=== PATIENT | female | born 1955 | race Caucasian/White ===

== ENCOUNTER → 2020-08-28 10:23 | Outpatient (BNVA) | payer MEDICAID, SELFPAY | PROVIDERS: PCP Internal Medicine; Visit Provider Hospitalist | DX: J45.41 Moderate persistent asthma with (acute) exacerbation (principal); J40 Bronchitis, not specified as acute or chronic; J30.9 Allergic rhinitis, unspecified; Z79.51 Long term (current) use of inhaled steroids; Z79.899 Other long term (current) drug therapy | CPT/HCPCS: 99212 ==

== ENCOUNTER 2020-08-28 11:08 | Outpatient (REF) | payer MEDICAID, SELFPAY | END 2020-08-28 11:09 | disposition home or self-care (01) | LOC: HO.LAB 11:08 | PROVIDERS: Visit Provider Internal Medicine | DX: Z20.822 Contact with and (suspected) exposure to COVID-19 (principal) | CPT/HCPCS: 36415; C9803; U0003; U0005 ==

== ENCOUNTER → 2020-11-26 15:07 | Outpatient (BNVA) | payer MEDICAID, SELFPAY | PROVIDERS: PCP Internal Medicine; Visit Provider Hospitalist | DX: J45.41 Moderate persistent asthma with (acute) exacerbation (principal); J40 Bronchitis, not specified as acute or chronic; J30.9 Allergic rhinitis, unspecified; Z79.899 Other long term (current) drug therapy | CPT/HCPCS: 99212 ==

== ENCOUNTER → 2021-11-22 15:21 | Outpatient (BNVA) | payer MEDICAID, SELFPAY | PROVIDERS: PCP Internal Medicine; Visit Provider Hospitalist | DX: J45.41 Moderate persistent asthma with (acute) exacerbation (principal); J30.9 Allergic rhinitis, unspecified; K21.9 Gastro-esophageal reflux disease without esophagitis | CPT/HCPCS: 99212 ==

== ENCOUNTER → 2022-04-15 09:05 | Outpatient (BNVA) | payer MEDICARE, MEDICAID, SELFPAY | PROVIDERS: PCP Internal Medicine; Visit Provider Hospitalist | DX: J40 Bronchitis, not specified as acute or chronic (principal); J30.9 Allergic rhinitis, unspecified; J45.41 Moderate persistent asthma with (acute) exacerbation; K21.9 Gastro-esophageal reflux disease without esophagitis | CPT/HCPCS: 99212 ==

== ENCOUNTER 2023-09-10 13:17 | Outpatient (AMB) | payer MEDICARE, MEDICAID, SELFPAY ==
[2023-09-10 13:27] VITALS: PULSE 56; O2SAT 98; BMI 29.5
--- NOTE | 2023-09-10 13:27 | MHC.OFFVIS ---
Intake Vital Signs 09/10/23 13:27 Height 4 ft 11 in Weight 146 lb BMI 29.5 Pulse 56 Pulse Source Pulse Oximeter Pulse Oximetry (%) 98 Oxygen Delivery Method Room Air Intake Visit Reasons: Asthma Technical Solutions Engineer Required: No Allergies No Known Allergies Allergy (Verified 09/10/23 13:29) HPI HPI Comments History of Present Illness Details The patient is a 68-year-old woman with a history of asthma in addition to allergic rhinitis. She is currently being treated by the allergy office. She was otherwise doing well until August when she started developing worsening shortness of breath and cough. She restarted the Symbicort with good effect. She is using daily. Has not had to use her rescue inhaler. Her nutritional assistant appeared to be better controlled this time. She is concerned because she did get sick back in November of 2018 requiring antibiotics and prednisone. At this point she is doing well. 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 We will readdress that issues during the early fall attending have the COVID-19 infections are going. Her sleep is better. She is not snoring as much that now that she has been using an addaptive device that she brought. We did talk about her pulmonary nodules and her last CT chest demonstrating stable nodules as per CT chest 2017. 08/28/2020 the patient is here for pulmonary follow-up visit. Since we last spoke the patient has been complaining of worsening cough along with shortness of breath. She feels some chest tightness. Mild in severity she had been doing okay specially with doing her allergy shots. She actually stop the Symbicort because use doing well. She did not require her short-acting beta agonist for some time. However, due to the pandemic she had this done the allergy shots in her respiratory status has been worsening. Been having a productive cough. She has been using her rescue therapy a nebulizer more frequently. Typically on a daily basis. She has required courses of prednisone. At this point the patient is planning a trip to [place] to see her new grandchild. She will be getting the Tdap vaccine this week. On examination she does have some expiratory wheezing. Explained to the patient that based on the fact that she is going to get a vaccine will going to give any prednisone. But, she needs to restart her Symbicort and also start using her nebulizer twice a day. In the meantime will treated for bronchitis with azithromycin. She will finish a 5 day course. She will follow-up with Allergy immunology regarding other alternatives to the allergy shots if she does not find effective. 11/26/2020 the patient is here for sick visit. She started developing worsening cough the last week. Positive sick contacts with a has been sick at home. She then started developing increasing cough chest congestion. She did call our office and we did provide her with a Z-Ted and she did start Mucinex DM. However, after several days she was no better. Therefore she will call to make an appointment. On today's visit she started to feel little better. Although she is expectorating more in the phlegm tends to be thick in discolored greenish color. She also feels tired. At some point in the beginning she did develop some chest discomfort which a component was pleuritic period of the right now on the examination her lungs sound relatively clear the bases without any evidence of any pleural rubs or consolidations. The patient has been using the nebulizer therapy twice a day. However, she is complaining about the tremulousness that she is getting from it. In addition to that she has developed some chest discomfort specially well coughing. [id number] severity. At this point she does not feel it. 11/22/2021 the patient is here for pulmonary follow-up visit. She continues to do fairly well. She has not required prednisone or antibiotics in the last year. She has continue with her allergy shots although there was a decrease in the amount recently. The patient still not sure when to use her inhalers. Has Symbicort available. I did recommend she can use use it as needed. we did review data demonstrating that Symbicort has been shown to be effective while using it as needed instead of short-acting beta agonists by itself. She can be monitored closely by symptoms and also peak flows to measure the airway resistance. I did provide her 1 in the office and we did instructed how to use it. Her peak flow was around 400 mL/sec. The patient also has a nebulizer available. She has not required. She was also found to have osteoporosis and will be starting Prolia soon. The patient does continue to have reflux symptoms. She stop the PPI due to her issue with osteoporosis. Patient is able to use Pepcid to minimize her reflux symptoms and to be using conjunction with the reflux diet. It may also help with her allergies. 04/15/2022 the patient is here for a pulmonary follow-up visit. The patient just came back from [place]. Once she got to [place] she became sick with worsening respiratory symptoms. She went to an urgent care where she was evaluated and found to have significant wheezing. She was given Solu-Medrol intramuscularly 2 days in a row. In addition to that she was started on levofloxacin also given cough medication. Her symptoms persisted while in [place]. She is feeling better although she is not back to baseline. She still coughing. At times is a croupy cough and at times is productive of yellowish green phlegm. She did complete the levofloxacin. She also completed the prednisone. She has been using the nebulizer but it makes her little shaky. She does have a flutter valve which she has not used it because she does not use it. Due to the fact that she has been under the weather she did not have her pulmonary function studies. We did review the use of the flutter valve and she may continue using it specially after the nebulized therapy. She knows that she can do half a treat him to minimize the adverse effects from the medication. In view of the persistent chest congestion I do believe that this is likely a postviral bacterial infection. Will go ahead and start her again on doxycycline in order to completely clear all the potential pathogens including community-acquired Staph. She continues using respiratory therapy. Also to note that when she came back she did have a chest x-ray done and she was told that it was normal. I do not have those results however. 09/10/2023 the patient is here for pulmonary follow-up visit. The patient is feeling well. Denies any recent exacerbations. She does have the Symbicort inhaler although she does not using all the time. She does complaint of chest congestion at times. The mucus usually clears up after she is able to expectorate it. She has been sick since last time she was here where she required antibiotics for that infection she developed a broad while she was in [place] visiting her daughter. She still has some prolonged expiratory phase on examination. I do believe that she needs to continue the Symbicort. Although she is concerned about her osteoporosis. Will go ahead and just have her take the smallest dose possible which 1 puff daily. Although she still can use it as needed as well. The patient should come back in 6 months with PFTs to assess her respiratory capacity. She does have another trip plan abroad to [place] in the coming weeks. I will make sure that a provider medications for her to take with her especially since she got sick during the last trip. [facility] Medical History (Updated 09/10/23 @ 13:32 by Joel Cain MD) Chronic allergic rhinitis Bronchitis Asthma Social History (Updated 11/26/20 @ 15:39 by SHAY Gerber) Patient Tobacco Use Status: Never used Tobacco Review of Systems Const Denies fatigue and Denies night sweats ENT Denies change in voice, Denies lip swelling, Denies mouth pain, Reports nasal congestion, Reports nasal discharge and Denies tongue swelling Card Denies chest pain Resp Denies change in phlegm color, Denies chest congestion, Reports cough, Denies hemoptysis, Denies pain on inspiration and Reports wheezing GI Denies abdominal pain and Reports heartburn Musc Denies no additional complaints Skin/Breast Denies rash Neuro Denies Neuro-related abnormal movements Psych Denies no additional complaints Endo Denies fatigue Derek/Lymph Denies easy bleeding and Denies lymphadenopathy Aller/Immun Denies lip swelling, Denies tongue swelling and Reports wheezing Physical Exam Vital Signs: Last Vital Signs Pulse 56 09/10/23 13:27 Pulse Ox 98 09/10/23 13:27 Oxygen Delivery Method Room Air 09/10/23 13:27 BMI result Body Mass Index 29.5 Const General: alert Neck Neck: Yes normal visual inspection, Yes full ROM and Yes no lymphadenopathy Chest Chest palpation & inspection: normal inspection of the chest Resp Effort & Inspection: prolonged expiratory phase Auscultation: no rhonchi, no wheezes (minimal) and diminished lung sounds Cardio Rate: regular rate Rhythm: regular rhythm Heart sounds: S1 normal heart sound present and S2 normal heart sound present GI Palpation (GI): Soft to palpation and nontender Auscultation: normal bowel sounds Skin General skin exam: no rashes or lesions noted Extrem General: Yes no clubbing, cyanosis or edema Assessment & Plan Assessment & Plan (1) Asthma: Code(s): J45.909 - Unspecified asthma, uncomplicated Qualifiers: Asthma complication type: with acute exacerbation Asthma persistence: persistent Asthma severity: moderate Qualified Code(s): J45.41 - Moderate persistent asthma with (acute) exacerbation (2) Chronic allergic rhinitis: Code(s): J30.9 - Allergic rhinitis, unspecified (3) GERD (gastroesophageal reflux disease): Code(s): K21.9 - Gastro-esophageal reflux disease without esophagitis Qualifiers: Esophagitis presence: without esophagitis Qualified Code(s): K21.9 - Gastro-esophageal reflux disease without esophagitis Plan Continue Symbicort in AM then as needed Nebulizer daily CPT with acapella valve Continue Mucinex benzonates as needed reflux diet Pepcid PFTs in 6 months F/U 6 months Orders: Orders PFT pulmonary function test 6 Months J45.41 - Moderate persistent asthma with (acute) exacerbation Medications: New prednisone PO daily; Take 6 tabs daily x 3 days, then 5 tabs x 3 days, then 4 tabs x 3 days, then 3 tabs x 3 days, then 2 tabs daily x 3 days, then 1 tab x 3 days to complete. 18 days 63 tabs 0RF doxycycline monohydrate 100 mg PO BID 14 days 28 tabs 0RF Coding Level of Care Code Est Pt Level 4 (66673) Diagnoses Moderate persistent asthma with acute exacerbation J45.41 Asthma complication type: with acute exacerbation Asthma persistence: persistent Asthma severity: moderate Chronic allergic rhinitis J30.9 Gastroesophageal reflux disease without esophagitis K21.9 Esophagitis presence: without esophagitis Time Spent (min) 18
== END 2023-09-10 14:00 | disposition home or self-care (01) ==
PROVIDERS: PCP Internal Medicine; Visit Provider Hospitalist
DX: J45.41 Moderate persistent asthma with (acute) exacerbation (principal); J30.9 Allergic rhinitis, unspecified; K21.9 Gastro-esophageal reflux disease without esophagitis
CPT/HCPCS: 99214

== ENCOUNTER → 2023-09-10 13:17 | Outpatient (BNVA) | payer MEDICARE, MEDICAID, SELFPAY | PROVIDERS: PCP Internal Medicine; Visit Provider Hospitalist | DX: J45.41 Moderate persistent asthma with (acute) exacerbation (principal); J30.9 Allergic rhinitis, unspecified; K21.9 Gastro-esophageal reflux disease without esophagitis | CPT/HCPCS: 99212 ==

== ENCOUNTER 2023-11-09 13:37 | Outpatient (AMB) | payer MEDICARE, MEDICAID, SELFPAY ==
[2023-11-09 13:41] VITALS: BP 94/60; PULSE 65; O2SAT 97; BMI 28.9
--- NOTE | 2023-11-09 13:41 | MHC.OFFVIS ---
Vital Signs 11/09/23 13:41 Height 4 ft 11 in Weight 143 lb 4.807 oz BMI 28.9 BP 94/60 Blood Pressure Location Lt brachial Position Sitting Pulse 65 Pulse Source Pulse Oximeter Pulse Oximetry (%) 97 Oxygen Delivery Method Room Air Intake Visit Reasons: productive cough Intake Note: pt is here for cough that is productive with yellow/green phelgm, shot of prednisone 60mg 10/26 with not much relief. Top Coater Required: No Allergies No Known Allergies Allergy (Verified 11/09/23 14:11) Medication List - Last Reconciled 11/09/23 by Ruth Toth MD albuterol sulfate 90 mcg/actuation 2 inhalations inhalation Q6H PRN 30 days budesonide-formoterol 160-4.5 mcg/actuation (Symbicort) 2 puffs inhalation BID cholecalciferol (vitamin D3) 1,250 mcg PO QWEEK citalopram (Celexa) 5 mg PO DAILY denosumab (Prolia) 60 mg subcut [id number] ipratropium-albuterol 0.5 mg-3 mg(2.5 mg base)/3 mL 3 mL inhalation Q6H PRN 30 days levocetirizine (Xyzal) 5 mg PO DAILY PRN nebulizers As directed prednisone 20 mg PO BID 5 days rizatriptan mg PO Do you need a note to return to daycare/school/sports/work: No HPI HPI productive cough: Details: 68 YEARS OLD FEMALE, HAS HISTORY OF ALLERGIC RHINITIS AND BRONCHIAL ASTHMA, FOR THE PAST MANY YEARS. SHE HAS BEEN ON IMMUNOTHERAPY AT THE ALLERGY OFFICE FOR THE LAST 5 YEARS. SHE STATES THAT SHE HAS NOTICED SOME BUT NOT COMPLETE IMPROVEMENT WITH THE SHOTS. SHE IS BEING FOLLOWED BY DR. GARCIA FOR PULMONARY MANAGEMENT. SINCE ABOUT 10-12 DAYS SHE IS HAVING INCREASED COUGH WITH YELLOWISH EXPECTORATION. SHE RECEIVED AN INJECTION OF MEDROXY PREDNISOLONE 60 MG IM ON 10/26 , STATES THAT SHE HAS NOT FOUND ANY SIGNIFICANT IMPROVEMENT. SHE DENIES ANY FEVER OR CHILLS OR CHEST PAIN. BECAUSE HER COUGH AND EXPECTORATION OF YELLOWISH PHLEGM IS PERSISTENT, AND SHE IS TRAVELING BY AIR TO [place] TOMORROW, SHE WAS CONCERNED AND HAS COME FOR AN URGENT VISIT TO OUR OFFICE. SHE WE HAD A GOOD CONVERSATION AND SHE DOES NOT SEEM TO BE IN ANY DISTRESS. HOWEVER SHE DID HAVE INTERMITTENT COUGH DURING HER STAY IN THE OFFICE. [facility] Medical History Asthma exacerbation attacks Chronic allergic rhinitis Bronchitis Asthma Social History Patient Tobacco Use Status: Never used Tobacco Review of Systems Const Denies fatigue and Denies night sweats ENT Denies change in voice, Denies lip swelling, Denies mouth pain, Reports nasal congestion (MILD INTERMITTENT) and Denies tongue swelling Card Denies chest pain Resp Denies change in phlegm color, Denies chest congestion, Reports cough, Denies hemoptysis, Denies pain on inspiration and Reports wheezing GI Denies abdominal pain and Reports heartburn Musc Denies no additional complaints Skin/Breast Denies rash Neuro Denies Neuro-related abnormal movements Psych Denies no additional complaints Endo Denies fatigue Derek/Lymph Denies easy bleeding and Denies lymphadenopathy Aller/Immun Denies lip swelling, Denies tongue swelling and Reports wheezing Physical Exam Const General: healthy appearing, comfortable and alert HEENT Other: THERE IS NO ACTIVE NASAL CONGESTION AT THIS TIME BUT SHE HAS MODERATE HYPERTROPHY OF THE NASAL TURBINATES. THROAT IS VERY CLEAR WITHOUT EVIDENCE OF ANY ACUTE INFECTION Eyes General: appearance normal, both eyes and all related structures Neck Neck: Yes normal visual inspection, Yes full ROM, Yes no lymphadenopathy and Yes JVD Chest Chest palpation & inspection: normal inspection of the chest, normal palpation of entire chest wall and no tenderness Resp Other: PERCUSSION NOTE IS RESONANT. BREATH SOUNDS. ARE DISTANT WITH PROLONGED EXPIRATORY PHASE BUT EQUAL ON BOTH SIDES. SCATTERED INSPIRATORY WHEEZES ARE HEARD ESPECIALLY OVER THE LOWER LOBES. Cardio Rate: regular rate Rhythm: regular rhythm Heart sounds: S1 normal heart sound present and S2 normal heart sound present GI Palpation (GI): Soft to palpation and nontender Auscultation: normal bowel sounds Skin General skin exam: no rashes or lesions noted Extrem General: Yes no clubbing, cyanosis or edema Assessment & Plan Assessment & Plan (1) Asthma exacerbation attacks: Comment: PATIENT IS A KNOWN CASE OF BRONCHIAL ASTHMA FOR MANY YEARS. CURRENTLY SHE HAS A LOW-GRADE ACUTE EXACERBATION PROBABLY DUE TO ACUTE BRONCHITIS. SHE IS TRAVELING TO [place] FOR A FEW WEEKS. Code(s): J45.901 - Unspecified asthma with (acute) exacerbation Category: Medical Plan: DISCUSSED WITH HER IN GREAT DETAIL. ADVISE THAT SHE SHOULD TAKE A COURSE OF PREDNISONE. SHE DOES HAVE 6 DAYS SUPPLY, WAS PRESCRIBED BY DR. GARCIA ON HER LAST VISIT. I TOLD HER TO GO AHEAD AND START THE PREDNISONE IN A TAPERING DOES PRESCRIBED. I WOULD ALSO GIVE HER ADDITIONAL SUPPLY OF 10 TABLETS OF 20 MG, TO KEEP ON HAND WHEN SHE IS TRAVELING IN [place], AND USE IF SHE GETS ANY ACUTE EXACERBATION OVER THE. SHE ALSO HAS THE SUPPLY OF DOXYCYCLINE 100 MG B.I.D. FOR 10 DAYS. AND I HAVE ADVISED HER TO KEEP IT ON HAND AND USE IF SHE STARTS HAVING ANY FEVER CHILLS OR INCREASED AMOUNT OF YELLOWISH PHLEGM. CONTINUE TO USE SYMBICORT 160-4.52 PUFFS B.I.D.. AND ALSO USE ALBUTEROL HFA 2 PUFFS Q 4-6 HOURS BUT ONLY P.R.N.. (2) Chronic allergic rhinitis: Comment: NASAL CONGESTION IS MINIMAL AT THIS TIME. 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 Code(s): J40 - Bronchitis, not specified as acute or chronic Category: Medical Plan: ADVISED TO KEEP DOXYCYCLINE ON HAND, AND IF SHE BECOMES MORE SYMPTOMATIC THEN MAY USE 100 MG B.I.D. FOR 10 DAYS. Medications: New prednisone 20 mg PO BID 5 days 10 tabs 0RF ASTHMA EXCERBATION Coding Level of Care Code Est Pt Level 3 (54441) Diagnoses Asthma exacerbation attacks J45.901 Chronic allergic rhinitis J30.9 Bronchitis J40
== END 2023-11-09 14:41 | disposition home or self-care (01) ==
PROVIDERS: PCP Internal Medicine; Visit Provider Internal Medicine
DX: J45.901 Unspecified asthma with (acute) exacerbation (principal); J30.9 Allergic rhinitis, unspecified
CPT/HCPCS: 99213

== ENCOUNTER → 2023-11-09 13:37 | Outpatient (BNVA) | payer MEDICARE, MEDICAID, SELFPAY | PROVIDERS: PCP Internal Medicine; Visit Provider Internal Medicine | DX: J45.901 Unspecified asthma with (acute) exacerbation (principal); J30.9 Allergic rhinitis, unspecified; Z79.52 Long term (current) use of systemic steroids | CPT/HCPCS: 99212 ==

== ENCOUNTER → 2023-12-15 08:44 | Outpatient (BNVA) | payer MEDICARE, MEDICAID, SELFPAY | PROVIDERS: PCP Internal Medicine; Visit Provider Nurse Practitioner Family | DX: J45.41 Moderate persistent asthma with (acute) exacerbation (principal); J30.9 Allergic rhinitis, unspecified | CPT/HCPCS: 99212 ==

== ENCOUNTER 2023-12-15 08:48 | Outpatient (AMB) | payer MEDICARE, MEDICAID, SELFPAY ==
--- NOTE | 2023-12-15 08:28 | MHC.OFFVIS ---
Vital Signs 12/15/23 08:48 Height 4 ft 11 in Weight 142 lb 2 oz BMI 28.7 BP 120/76 Blood Pressure Location Lt brachial Position Sitting Pulse 63 Pulse Source Pulse Oximeter Pulse Oximetry (%) 96 Oxygen Delivery Method Room Air Intake Visit Reasons: productive cough Allergies No Known Allergies Allergy (Verified 12/15/23 08:51) HPI HPI productive cough: Details: Yahir is a pleasant 68 year old female, never smoker, with underlying asthma and allergic rhinitis. She is under the care of Dr. Cain and presents today for an acute visit. At baseline she is moderately controlled on Symbicort 160 mcg, albuterol MDI, Duoneb and allergen immunotherapy. She reports worsening control of asthma and productive cough, seen by Dr. Toth on 11/08, treated with prednisone and given doxycycline however did not take medication prescribed. She did take the prednisone taper Dr. Cain had prescribed in the past, which was 60 mg taper for a total of 18 days. She reports symptoms improved and traveled to [place]. After traveling back home she recalls a passenger with persistent coughing on the flight and soon developed symptoms. She reports dry cough, chest congestion with difficulty expectorating and worsening dyspnea since 12/08/23 and has been progressing the last three days. She has been using her nebulizer BID, albuterol daily and mucinex with minimal relief. She denies any fevers, chills. [facility] Medical History (Updated 12/15/23 @ 20:25 by Leyda Russell NP) Mild mitral valve prolapse Asthma exacerbation attacks Chronic allergic rhinitis Bronchitis Asthma Social History Patient Tobacco Use Status: Never used Tobacco Review of Systems Const Denies chills, Denies excessive sweating, Denies fever(s), Denies headache(s) and Denies night sweats Eyes Denies dry eyes, Denies irritation and Denies itchy eyes ENT Reports Normal hearing present, Denies headache(s), Denies nasal congestion, Denies nasal discharge, Denies post nasal drip and Denies sore throat Card Denies chest pain, Denies chest pain at rest, Denies chest pain with activity, Denies claudication, Denies leg edema, Denies orthopnea and Denies paroxysmal nocturnal dyspnea Resp Denies excessive phlegm production, Denies pain on inspiration, Denies pain with cough, Denies stridor and Denies wheezing Musc Denies myalgias Neuro Reports Normal hearing present and Denies headache(s) Endo Denies excessive sweating Derek/Lymph Denies lymphadenopathy Aller/Immun Denies itchy eyes, Denies seasonal rhinorrhea and Denies wheezing Physical Exam Vital Signs: Last Vital Signs Pulse 63 12/15/23 08:48 BP 120/76 12/15/23 08:48 Pulse Ox 96 12/15/23 08:48 Oxygen Delivery Method Room Air 12/15/23 08:48 BMI result Body Mass Index 28.7 Const General: cooperative, healthy appearing, comfortable, no acute distress, well developed and alert Nutritional Appearance: obese Orientation/consciousness: patient oriented x3 Limitations: no limitations HEENT Head: Yes normal to inspection, Yes normocephalic and Yes atraumatic Ears: hearing grossly normal bilaterally and external ears normal Eyes General: appearance normal, both eyes and all related structures Eyelids: Yes eyelids normal Sclerae: sclerae normal EOM: EOMs intact bilaterally Neck Neck: Yes normal visual inspection and Yes no lymphadenopathy Lymphatic: no lymphadenopathy noted Chest Chest palpation & inspection: normal inspection of the chest Resp Effort & Inspection: normal respiratory effort, able to speak in complete sentences, no audible wheezes, no cough, no stridor, not tachypneic, no tripod positioning and no use of accessory muscles Auscultation: wheezes expiratory wheezes and throughout and diminished lung sounds Cardio Jugular venous distension: no JVD Rate: regular rate Rhythm: regular rhythm Skin Other: warm, dry General skin exam: no rashes or lesions noted Neuro General: patient oriented x3 Cranial nerves: Yes Normal hearing present Cognition (Neuro): normal cognition Gait exam (Neuro): Normal gait present Extrem General: Yes normal to inspection, Yes capillary refill normal, Yes no clubbing, cyanosis or edema and Yes no pedal edema Psych Appearance: grossly normal and well kempt Speech and movement: Normal speech and movement present and Clear speech present Affect: normal affect Attitude: cooperative Thought process: Normal thought process present Thought content: Normal thought content present Insight: Good insight present (Psych) Judgement: Good judgement present (Psych) Assessment & Plan Assessment & Plan (1) Asthma: Code(s): J45.909 - Unspecified asthma, uncomplicated Category: Medical Qualifiers: Asthma severity: moderate Asthma persistence: persistent Asthma complication type: with acute exacerbation Qualified Code(s): J45.41 - Moderate persistent asthma with (acute) exacerbation (2) Chronic allergic rhinitis: Code(s): J30.9 - Allergic rhinitis, unspecified Category: Medical Plan Yahir presents with progressively worsening dyspnea on exertion, chest congestion with difficulty expectorating and minimal responsive to current regimen. On exam, wheezing appreciated with diminished lung sounds. Advised to take doxycyline and prednisone 40 mg x 5 days, which she has at home, previously prescribed from Dr. Toth. She did note that due to worsening symptoms for almost two months and has not been able to comply with allergen immunotherapy. Advised to restart consistent regimen and take a daily antihistamine until able to be compliant. Given that this is the second round of prednisone, discussed possibility of biologics, to be further discussed with Dr. Cain, if unresponsive to maintenance dose of allergen immunotherapy. She is aware if symptoms persist after doxy and prednisone to call office and will order CXR. All questions were answered and patient is in agreement of plan. Will follow up for regularly scheduled appointment with Dr. Cain or sooner if needed. Coding Level of Care Code Est Pt Level 3 (62106) Diagnoses Moderate persistent asthma with acute exacerbation J45.41 Asthma severity: moderate Asthma persistence: persistent Asthma complication type: with acute exacerbation Chronic allergic rhinitis J30.9
--- OUTSIDE RECORDS SUMMARY | 2023-12-15 08:46 | XMS_ITS | Summary of Care ---
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
--- OUTSIDE RECORDS SUMMARY | 2023-12-15 08:46 | XMS_ITS | Summary of Care ---
Author Organization [facility] Address [address] [place] [address]- Care Team Providers Care Floor Tiling Professional Name Role Phone NAVNEET NORWOOD MD Primary Care Physician Encounter [facility]_CSN [id number] Date(s): 04/06/23 - 04/06/23 [facility] [address] [place] [address]- Discharge Disposition: Home Attending Physician: KATHERINE MCCOLLUM MD Referring Physician: PERFECTO AMBRIZ MD Problem List Condition Confirmation Course Effective Dates Status Health St atus Informant Tear of medial meniscus of knee 1 Confirmed Active 1Added by [facility] Patient Care team information Personnel Name: NAVNEET NORWOOD MD Address: Address: [address] [place] [phone] [place]
--- OUTSIDE RECORDS SUMMARY | 2023-12-15 08:46 | XMS_ITS | Summary of Care ---
Author Organization [facility] Address [address] [place] [address] Care Team Providers Care Assistant Superintendent Name Role Phone NAVNEET NORWOOD MD Primary Care Physician Encounter [facility]_CSN [id number] Date(s): 02/16/23 - 02/16/23 [facility] [address] [place] [address] [place] Encounter Diagnosis Pain in right knee(Final) - Unilateral primary osteoarthritis, right knee(Final) - Nondisplaced fracture of right tibial spine, sequela(Final) - Discharge Disposition: Discharge Attending Physician: ANT DUTTA MD Referring Physician: PB GIMENEZ, PERFECTO Esquivel Medications Euflexxa 10 mg/mL intra-articular solution See Instructions, Special Instructions: 10 mg/mL intra-articular injection, 1 time per week for 3 weeks, Dispense Quantity: 1 kit, Entered: 02/16/23 12:16:00 EDT, Stop: 05/19/23 12:17:00 EST Start Date: 02/16/23 Stop Date: 05/19/23 Status: Ordered Problem List Condition Confirmation Course Effective Dates Status Health St atus Informant Tear of medial meniscus of knee 1 Confirmed Active 1Added by [facility] Patient Care team information Personnel Name: NAVNEET NORWOOD MD Address: Address: [address] [place] [phone] [place]
--- OUTSIDE RECORDS SUMMARY | 2023-12-15 08:46 | XMS_ITS | Summary of Care ---
Author Organization [facility] Address [address] [place] [address]- Care Team Providers Care Master Cosmetologist Name Role Phone NAVNEET NORWOOD MD Primary Care Physician Encounter [facility]_CSN [id number] Date(s): 03/30/23 - 03/30/23 [facility] [address] [place] [address]- Discharge Disposition: Home Attending Physician: KATHERINE MCCOLLUM MD Referring Physician: PERFECTO AMBRIZ MD Problem List Condition Confirmation Course Effective Dates Status Health St atus Informant Tear of medial meniscus of knee 1 Confirmed Active 1Added by [facility] Patient Care team information Personnel Name: NAVNEET NORWOOD MD Address: Address: [address] [place] [phone] [place]
--- OUTSIDE RECORDS SUMMARY | 2023-12-15 08:46 | XMS_ITS | Summary of Care ---
Author Organization [facility] Address [address] [place] [address] Care Team Providers Care Hat Binder Name Role Phone NAVNEET NORWOOD MD Primary Care Physician Encounter [facility]_CSN [id number] Date(s): 02/05/23 - 02/05/23 [facility] [address] [place] [address] Discharge Disposition: Discharge Attending Physician: ANT DUTTA MD Referring Physician: PB GIMENEZ, PERFECTO Esquivel Problem List Condition Confirmation Course Effective Dates Status Health St atus Informant Tear of medial meniscus of knee 1 Confirmed Active 1Added by [facility] Patient Care team information Personnel Name: NAVNEET NORWOOD MD Address: Address: [address] [place] [phone] [place]
[2023-12-15 08:48] VITALS: BP 120/76; PULSE 63; O2SAT 96; BMI 28.7
== END 2023-12-15 09:17 | disposition home or self-care (01) ==
PROVIDERS: PCP Internal Medicine; Visit Provider Nurse Practitioner Family
DX: J45.41 Moderate persistent asthma with (acute) exacerbation (principal); J30.9 Allergic rhinitis, unspecified
CPT/HCPCS: 99213

== ENCOUNTER 2023-12-21 09:23 | Outpatient (AMB) | payer MEDICARE, MEDICAID, SELFPAY ==
--- NOTE | 2023-12-21 09:27 | MHC.OFFVIS ---
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 She is currently being treated by the allergy office. She was otherwise doing well until August when she started developing worsening shortness of breath and cough. She restarted the Symbicort with good effect. She is using daily. Has not had to use her rescue inhaler. 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 She is concerned because she did get sick back in November of 2018 requiring antibiotics and prednisone. At this point she is doing well. 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 We will readdress that issues during the early fall attending have the COVID-19 infections are going. Her sleep is better. She is not snoring as much that now that she has been using an addaptive device that she brought. We did talk about her pulmonary nodules and her last CT chest demonstrating stable nodules as per CT chest 2017. 08/28/2020 the patient is here for pulmonary follow-up visit. Since we last spoke the patient has been complaining of worsening cough along with shortness of breath. She feels some chest tightness. Mild in severity she had been doing okay specially with doing her allergy shots. She actually stop the Symbicort because use doing well. She did not require her short-acting beta agonist for some time. However, due to the pandemic she had this done the allergy shots in her respiratory status has been worsening. Been having a productive cough. She has been using her rescue therapy a nebulizer more frequently. Typically on a daily basis. She has required courses of prednisone. At this point the patient is planning a trip to [place] to see her new grandchild. She will be getting the Tdap vaccine this week. On examination she does have some expiratory wheezing. Explained to the patient that based on the fact that she is going to get a vaccine will going to give any prednisone. But, she needs to restart her Symbicort and also start using her nebulizer twice a day. In the meantime will treated for bronchitis with azithromycin. She will finish a 5 day course. She will follow-up with Allergy immunology regarding other alternatives to the allergy shots if she does not find effective. 11/26/2020 the patient is here for sick visit. She started developing worsening cough the last week. Positive sick contacts with a has been sick at home. She then started developing increasing cough chest congestion. She did call our office and we did provide her with a Z-Ted and she did start Mucinex DM. However, after several days she was no better. Therefore she will call to make an appointment. On today's visit she started to feel little better. Although she is expectorating more in the phlegm tends to be thick in discolored greenish color. She also feels tired. At some point in the beginning she did develop some chest discomfort which a component was pleuritic period of the right now on the examination her lungs sound relatively clear the bases without any evidence of any pleural rubs or consolidations. The patient has been using the nebulizer therapy twice a day. However, she is complaining about the tremulousness that she is getting from it. In addition to that she has developed some chest discomfort specially well coughing. Pbxr-[id number] severity. At this point she does not feel it. 11/22/2021 the patient is here for pulmonary follow-up visit. She continues to do fairly well. She has not required prednisone or antibiotics in the last year. She has continue with her allergy shots although there was a decrease in the amount recently. The patient still not sure when to use her inhalers. Has Symbicort available. I did recommend she can use use it as needed. we did review data demonstrating that Symbicort has been shown to be effective while using it as needed instead of short-acting beta agonists by itself. She can be monitored closely by symptoms and also peak flows to measure the airway resistance. I did provide her 1 in the office and we did instructed how to use it. Her peak flow was around 400 mL/sec. The patient also has a nebulizer available. She has not required. She was also found to have osteoporosis and will be starting Prolia soon. The patient does continue to have reflux symptoms. She stop the PPI due to her issue with osteoporosis. Patient is able to use Pepcid to minimize her reflux symptoms and to be using conjunction with the reflux diet. It may also help with her allergies. 04/15/2022 the patient is here for a pulmonary follow-up visit. The patient just came back from [place]. Once she got to [place] she became sick with worsening respiratory symptoms. She went to an urgent care where she was evaluated and found to have significant wheezing. She was given Solu-Medrol intramuscularly 2 days in a row. In addition to that she was started on levofloxacin also given cough medication. Her symptoms persisted while in [place]. She is feeling better although she is not back to baseline. She still coughing. At times is a croupy cough and at times is productive of yellowish green phlegm. She did complete the levofloxacin. She also completed the prednisone. She has been using the nebulizer but it makes her little shaky. She does have a flutter valve which she has not used it because she does not use it. Due to the fact that she has been under the weather she did not have her pulmonary function studies. We did review the use of the flutter valve and she may continue using it specially after the nebulized therapy. She knows that she can do half a treat him to minimize the adverse effects from the medication. In view of the persistent chest congestion I do believe that this is likely a postviral bacterial infection. Will go ahead and start her again on doxycycline in order to completely clear all the potential pathogens including community-acquired Staph. She continues using respiratory therapy. Also to note that when she came back she did have a chest x-ray done and she was told that it was normal. I do not have those results however. 09/10/2023 the patient is here for pulmonary follow-up visit. The patient is feeling well. Denies any recent exacerbations. She does have the Symbicort inhaler although she does not using all the time. She does complaint of chest congestion at times. The mucus usually clears up after she is able to expectorate it. She has been sick since last time she was here where she required antibiotics for that infection she developed a broad while she was in [place] visiting her daughter. She still has some prolonged expiratory phase on examination. I do believe that she needs to continue the Symbicort. Although she is concerned about her osteoporosis. Will go ahead and just have her take the smallest dose possible which 1 puff daily. Although she still can use it as needed as well. The patient should come back in 6 months with PFTs to assess her respiratory capacity. She does have another trip plan abroad to [place] in the coming weeks. I will make sure that a provider medications for her to take with her especially since she got sick during the last trip. 12/21/2023 the patient is here for sick visit. She has had a very eventful few months. When he last saw her the patient was ready to go on a trip to [place]. Then she became sick she saw Allergy and she was given a course of steroids because she was having significant coughing wheezing chest tightness. Subsequently her symptoms worsened so she was seen by Pulmonary him she was prescribed another course prednisone for her trip. When she was there the patient developed a swollen leg and was evaluated for blood clot of the left lower extremity. Was negative for any blood clots. I do not have the report though this is all per patient report. The patient is subsequently [place] She has had worsening cough shortness of breath. Denies any pleuritic chest pain. She has been fatigued. Her leg is less swollen which is reassuring. She was then evaluated again by Pulmonary and she was placed on doxycycline and completed a course of prednisone again. And now she is no better. She still coughing is productive in nature yellowish in color difficult to expectorate. She has been using Mucinex. She does have significant rhonchi and crackles in the right base suggesting bronchopneumonia. She did have a chest x-ray which I personally reviewed consistent with the findings on the exam. Her white counts elevated. Her D-dimer is also significantly elevated at 492. [facility] Medical History (Updated 12/21/23 @ 09:51 by Joel Cain MD) Mild mitral valve prolapse Asthma exacerbation attacks Chronic allergic rhinitis Bronchitis Asthma Social History Patient Tobacco Use Status: Never used Tobacco Review of Systems Const Reports fatigue and Denies night sweats ENT Denies change in voice, Denies lip swelling, Denies mouth pain, Reports nasal congestion, Reports nasal discharge and Denies tongue swelling Card Denies chest pain and Reports dyspnea on exertion Resp Reports change in phlegm color, Reports chest congestion, Reports cough, Denies hemoptysis, Denies pain on inspiration, Denies pain with cough, Reports dyspnea on exertion and Reports wheezing GI Denies abdominal pain and Reports heartburn Musc Denies no additional complaints Skin/Breast Denies rash Neuro Denies Neuro-related abnormal movements Psych Denies no additional complaints Endo Reports fatigue Derek/Lymph Denies easy bleeding and Denies lymphadenopathy Aller/Immun Denies lip swelling, Denies tongue swelling and Reports wheezing Physical Exam Vital Signs: Last Vital Signs Pulse 66 12/21/23 09:28 BP 122/70 12/21/23 09:28 Pulse Ox 95 12/21/23 09:28 Oxygen Delivery Method Room Air 12/21/23 09:28 BMI result Body Mass Index 29.1 Const General: alert Neck Neck: Yes normal visual inspection, Yes full ROM and Yes no lymphadenopathy Chest Chest palpation & inspection: normal inspection of the chest Resp Auscultation: crackles on the right in the lower lung dukes, rhonchi, no wheezes and diminished lung sounds Cardio Rate: regular rate Rhythm: regular rhythm Heart sounds: S1 normal heart sound present and S2 normal heart sound present GI Palpation (GI): Soft to palpation and nontender Auscultation: normal bowel sounds Skin General skin exam: no rashes or lesions noted Extrem General: Yes no clubbing, cyanosis or edema Office Procedures Nebulizer Treatment Nebulizer Treatment [id number] RX initial, or Nebulizer Subsequent Treatment Office Meds albuterol sulfate 2.5 mg/3 mL (0.083 %) solution for nebulization Performing Provider: Joel Cain MD Performing Location: [facility] Administered by: Shira Muniz LPN on 12/21/23 09:49 Dose Route Admin Location Dispensed Lot Number Expiration Date [facility] Bingo Attendant 2.5 mg inhalation 3 mL [id number] 09/05/24 8105-3516-99 MYLAN Assessment & Plan Assessment & Plan (1) Bronchopneumonia: Code(s): J18.0 - Bronchopneumonia, unspecified organism Category: Medical (2) Asthma: Code(s): J45.909 - Unspecified asthma, uncomplicated Category: Medical Qualifiers: Asthma complication type: with acute exacerbation Asthma persistence: persistent Asthma severity: moderate Qualified Code(s): J45.41 - Moderate persistent asthma with (acute) exacerbation (3) Chronic allergic rhinitis: Code(s): J30.9 - Allergic rhinitis, unspecified Category: Medical (4) GERD (gastroesophageal reflux disease): Code(s): K21.9 - Gastro-esophageal reflux disease without esophagitis Category: Medical Qualifiers: Esophagitis presence: without esophagitis Qualified Code(s): K21.9 - Gastro-esophageal reflux disease without esophagitis Plan start Levaquin Bloodwork, ddimer was significantly positive with recent h/o LLE swelling and trans-atlantic flight. Will benefit from a CTA to r/o PE Continue Symbicort in AM then as needed Nebulizer daily CPT with acapella valve Continue Mucinex F/U 2 weeks Orders: Orders XR chest 2V Today J18.0 - Bronchopneumonia, unspecified organism Complete Blood Count Auto Diff Today J18.0 - Bronchopneumonia, unspecified organism Sputum Cult + Gram stain Today J18.0 - Bronchopneumonia, unspecified organism AMB Nebulizer Treatment Today J45.41 - Moderate persistent asthma with (acute) exacerbation Basic Metabolic Panel Today J18.0 - Bronchopneumonia, unspecified organism Erythrocyte Sedimentation Rate Today J18.0 - Bronchopneumonia, unspecified organism D Dimer High Sensitivity Today J18.0 - Bronchopneumonia, unspecified organism CT angio chest PE protocol Today R79.89 - Other specified abnormal findings of blood chemistry Medications: New levofloxacin 500 mg PO DAILY 10 days 10 tabs 0RF Coding Level of Care Code Est Pt Level 4 (18964) Diagnoses Bronchopneumonia J18.0 Moderate persistent asthma with acute exacerbation J45.41 Asthma complication type: with acute exacerbation Asthma persistence: persistent Asthma severity: moderate Chronic allergic rhinitis J30.9 Gastroesophageal reflux disease without esophagitis K21.9 Esophagitis presence: without esophagitis CPT Codes Nebulizer Treatment - Nebulizer Treatment, initial or subsequent: [id number] RX initial, or Nebulizer Subsequent Treatment ([id number]) Time Spent (min) 30
[2023-12-21 09:28] VITALS: BP 122/70; PULSE 66; O2SAT 95; BMI 29.1
== END 2023-12-21 10:35 | disposition home or self-care (01) ==
PROVIDERS: PCP Internal Medicine; Visit Provider Hospitalist
DX: J18.0 Bronchopneumonia, unspecified organism (principal); J45.41 Moderate persistent asthma with (acute) exacerbation; J30.9 Allergic rhinitis, unspecified; K21.9 Gastro-esophageal reflux disease without esophagitis
CPT/HCPCS: 99214

== ENCOUNTER 2023-12-21 09:23 | Outpatient (REF) | payer MEDICARE, MEDICAID, SELFPAY ==
--- NOTE | ~2023-12-21 | XR_ITS ---
EXAMINATION: XR CHEST CLINICAL INFORMATION: Bronchopneumonia patient states history of pneumonia. COMPARISON: None available. TECHNIQUE: Single view of the chest. FINDINGS: Mild S-shaped thoracolumbar scoliosis with degenerative changes. The lungs are well inflated. There is no gross pneumothorax. No pleural effusion. Heart size is normal. Mild hazy opacity adjacent to the cardiac apex may represent a fat pad, although an infectious/inflammatory process should also be considered in the appropriate clinical setting. XR/XR chest 2V IMPRESSION: Mild hazy opacity adjacent to the cardiac apex may represent a fat pad, although an infectious/inflammatory process should also be considered in the appropriate clinical setting.
[2023-12-21 10:33] LABS: MANUAL DIFF FLAG NO
[2023-12-21 11:37] LABS: Basophils Absolute Auto 0.1 X10*3/uL (0.0-0.2); Basophils Percent Auto 0.7 % (0-2); Eosinophils Absolute Auto 0.1 X10*3/uL (0.0-0.4); Eosinophils Percent Auto 1.1 % (0-4); Hematocrit 46.3 % (37.0-47.0); Hemoglobin 15.2 g/dl (12.0-16.0); Imm Gran Abs Auto 0.12 X10*3/uL (0.00-0.03); Imm Gran Pct Auto 1.1 % (0.0-0.4); Lymphocytes Absolute Auto 4.9 X10*3/uL (1.2-4.9); Lymphocytes Percent Auto 44.9 % (20-40); Mean Corpuscular HGB Conc 32.8 g/dl (31.0-35.0); Mean Corpuscular Hemoglobin 31.1 pg (27.0-33.0); Mean Corpuscular Volume 94.9 fL (80.0-98.0); Mean Platelet Volume 9.2 fL (9.4-12.3); Monocytes Absolute Auto 0.7 X10*3/uL (0.1-1.2); Monocytes Percent Auto 6.3 % (2-11); Neutrophils Percent Auto 45.9 % (45-73); Platelet Count 366 X10*3/uL (160-400); Red Blood Count 4.88 X10*6/uL (4.20-5.50); Red Cell Distribution Width 12.8 % (11.0-16.0); White Blood Count 10.9 X10*3/uL (4.8-10.8)
[2023-12-21 11:57] LABS: D Dimer High Sensitivity 492 NG/ML
[2023-12-21 12:13] LABS: Anion Gap 13 (12-20); Blood Urea Nitrogen 10 mg/dL (9-16); Carbon Dioxide 29 mmol/L (22-29); Chloride 105 mmol/L (96-108); Estimated Glomerular Filt Rate > 60; Glucose Random 85 mg/dL (60-115); Potassium 3.7 mmol/L (3.3-5.1); Sodium 143 mmol/L (135-145)
[2023-12-21 12:17] LABS: Erythrocyte Sedimentation Rate 6 MM/HR (0-20)
== END 2023-12-21 09:24 | disposition home or self-care (01) ==
LOC: HO.LAB 09:23
PROVIDERS: PCP Internal Medicine; Visit Provider Hospitalist
DX: J18.0 Bronchopneumonia, unspecified organism (principal); J45.41 Moderate persistent asthma with (acute) exacerbation; J30.9 Allergic rhinitis, unspecified; K21.9 Gastro-esophageal reflux disease without esophagitis; R79.89 Other specified abnormal findings of blood chemistry
CPT/HCPCS: 36415; 71046; 80048; 85025; 85379; 85652; 94640; 99212

== ENCOUNTER 2023-12-22 08:07 | Outpatient (REF) | payer MEDICARE, MEDICAID, SELFPAY ==
--- NOTE | ~2023-12-22 | CT_ITS ---
EXAMINATION: CT ANGIOGRAM OF THE CHEST WITH AND WITHOUT CONTRAST (CT PULMONARY ANGIOGRAM FOR PE) CLINICAL INFORMATION: Reason for Exam R79.89 - Other specified abnormal findings of blood chemistry COMPARISON: None available. TECHNIQUE: Prior to contrast administration, noncontrast localization images were obtained. Subsequently, multidetector volumetric imaging was performed from the thoracic inlet to below the diaphragms following the administration of 80 mL Omnipaque 350 intravenous contrast. No contrast reaction reported Sagittal, coronal, and MIP oblique sagittal reformatted images were obtained on the CT workstation, uploaded to PACS, and reviewed. This CT examination was performed using dose optimization techniques as appropriate, variously including the following: *Automated exposure control *Adjustment of mA and/or kV according to patient size (this includes techniques or standardized protocols for targeted exams where dose is matched to indication/reason for exam; i.e. extremities or head) *Use of iterative reconstruction technique Total exam dose-length product mGy-cm FINDINGS: QUALITY OF STUDY/CONTRAST BOLUS: Satisfactory. PULMONARY ARTERIES: No pulmonary emboli. THORACIC AORTA: No aneurysm. LUNG: No focal consolidation, nodules or masses. PLEURA: No pleural effusion or pneumothorax. MEDIASTINUM: Normal heart size. No pericardial effusion. No hilar or mediastinal lymphadenopathy. No evidence of septal bowing or right heart strain. CORONARY ARTERY CALCIFICATION: None visualized on this study. CHEST WALL/AXILLA: No axillary or internal mammary lymphadenopathy. OSSEOUS STRUCTURES: Spondylitic change within the lower thoracic spine but no fracture. UPPER ABDOMEN: Unremarkable. No reflux of contrast into the hepatic veins to suggest elevated right heart pressures. CT/CT angio chest PE protocol IMPRESSION: Unremarkable exam. No evidence for acute PE. VTE: negative.
[2023-12-22] MEDS: iohexoL 350 MG/ML 100 ML INFUS..BTL 65 ML IV (09:01)
== END 2023-12-22 08:08 | disposition home or self-care (01) ==
LOC: HO.CT 08:07
PROVIDERS: PCP Internal Medicine; Visit Provider Hospitalist
DX: R79.89 Other specified abnormal findings of blood chemistry (principal)
CPT/HCPCS: 71275; Q9967

== ENCOUNTER 2024-01-12 13:47 | Outpatient (AMB) | payer MEDICARE, MEDICAID, SELFPAY ==
--- NOTE | 2024-01-12 13:54 | A.OFFVIS_ITS ---
Vital Signs 01/12/24 13:55 Height 4 ft 11 in Weight 146 lb BMI 29.5 BP 126/72 Blood Pressure Location Lt brachial Position Sitting Pulse 74 Pulse Source Pulse Oximeter Pulse Oximetry (%) 96 Oxygen Delivery Method Room Air Intake Visit Reasons: Shortness of breath Physical Therapy Assistant Instructor Required: No Allergies No Known Allergies Allergy (Verified 01/12/24 13:57) HPI Comments Details: The patient is a 68-year-old woman with a history of asthma in addition to allergic rhinitis. She is currently being treated by the allergy office. She was otherwise doing well until August when she started developing worsening shortness of breath and cough. She restarted the Symbicort with good effect. She is using daily. Has not had to use her rescue inhaler. 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 She is concerned because she did get sick back in November of 2018 requiring antibiotics and prednisone. At this point she is doing well. 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 We will readdress that issues during the early fall attending have the COVID-19 infections are going. Her sleep is better. She is not snoring as much that now that she has been using an addaptive device that she brought. We did talk about her pulmonary nodules and her last CT chest demonstrating stable nodules as per CT chest 2017. 08/28/2020 the patient is here for pulmonary follow-up visit. Since we last spoke the patient has been complaining of worsening cough along with shortness of breath. She feels some chest tightness. Mild in severity she had been doing okay specially with doing her allergy shots. She actually stop the Symbicort because use doing well. She did not require her short-acting beta agonist for some time. However, due to the pandemic she had this done the allergy shots in her respiratory status has been worsening. Been having a productive cough. She has been using her rescue therapy a nebulizer more frequently. Typically on a daily basis. She has required courses of prednisone. At this point the patient is planning a trip to [place] to see her new grandchild. She will be getting the Tdap vaccine this week. On examination she does have some expiratory wheezing. Explained to the patient that based on the fact that she is going to get a v accine will going to give any prednisone. But, she needs to restart her Symbicort and also start using her nebulizer twice a day. In the meantime will treated for bronchitis with azithromycin. She will finish a 5 day course. She will follow-up with Allergy immunology regarding other alternatives to the allergy shots if she does not find effective. 11/26/2020 the patient is here for sick visit. She started developing worsening cough the last week. Positive sick contacts with a has been sick at home. She then started developing increasing cough chest congestion. She did call our office and we did provide her with a Z-Ted and she did start Mucinex DM. However, after several days she was no better. Therefore she will call to make an appointment. On today's visit she started to feel little better. Although she is expectorating more in the phlegm tends to be thick in discolored greenish color. She also feels tired. At some point in the beginning she did develop some chest discomfort which a component was pleuritic period of the right now on the examination her lungs sound relatively clear the bases without any evidence of any pleural rubs or consolidations. The patient has been using the nebulizer therapy twice a day. However, she is complaining about the tremulousness that she is getting from it. In addition to that she has developed some chest discomfort specially well coughing. [id number] severity. At this point she does not feel it. 11/22/2021 the patient is here for pulmonary follow-up visit. She continues to do fairly well. She has not required prednisone or antibiotics in the last year. She has continue with her allergy shots although there was a decrease in the amount recently. The patient still not sure when to use her inhalers. Has Symbicort available. I did recommend she can use use it as needed. we did review data demonstrating that Symbicort has been shown to be effective while using it as needed instead of short-acting beta agonists by itself. She can be monitored closely by symptoms and also peak flows to measure the airway resistance. I did provide her 1 in the office and we did instructed how to use it. Her peak flow was around 400 mL/sec. The patient also has a nebulizer available. She has not required. She was also found to have osteoporosis and will be starting Prolia soon. The patient does continue to have reflux symptoms. She stop the PPI due to her issue with osteoporosis. Patient is able to use Pepcid to minimize her reflux symptoms and to be using conjunction with the reflux diet. It may also help with her allergies. 04/15/2022 the patient is here for a pulmonary follow-up visit. The patient just came back from [place]. Once she got to [place] she became sick with worsening respiratory symptoms. She went to an urgent care where she was evaluated and found to have significant wheezing. She was given Solu-Medrol intramuscularly 2 days in a row. In addition to that she was started on levofloxacin also given cough medication. Her symptoms persisted while in [place]. She is feeling better although she is not back to baseline. She still coughing. At times is a croupy cough and at times is productive of yellowish green phlegm. She did complete the levofloxacin. She also completed the prednisone. She has been using the nebulizer but it makes her little shaky. She does have a flutter valve which she has not used it because she does not use it. Due to the fact that she has been under the weather she did not have her pulmonary function studies. We did review the use of the flutter valve and she may continue using it specially after the nebulized therapy. She knows that she can do half a treat him to minimize the adverse effects from the medication. In view of the persistent chest congestion I do believe that this is likely a postviral bacterial infection. Will go ahead and start her again on doxycycline in order to completely clear all the potential pathogens including community-acquired Staph. She continues using respiratory therapy. Also to note that when she came back she did have a chest x-ray done and she was told that it was normal. I do not have those results however. 09/10/2023 the patient is here for pulmonary follow-up visit. The patient is feeling well. Denies any recent exacerbations. She does have the Symbicort inhaler although she does not using all the time. She does complaint of chest congestion at times. The mucus usually clears up after she is able to expectorate it. She has been sick since last time she was here where she required antibiotics for that infection she developed a broad while she was in [place] visiting her daughter. She still has some prolonged expiratory phase on examination. I do believe that she needs to continue the Symbicort. Although she is concerned about her osteoporosis. Will go ahead and just have her take the smallest dose possible which 1 puff daily. Although she still can use it as needed as well. The patient should come back in 6 months with PFTs to assess her respiratory capacity. She does have another trip plan abroad to [place] in the coming weeks. I will make sure that a provider medications for her to take with her especially since she got sick during the last trip. 12/21/2023 the patient is here for sick visit. She has had a very eventful few months. When he last saw her the patient was ready to go on a trip to [place]. Then she became sick she saw Allergy and she was given a course of steroids because she was having significant coughing wheezing chest tightness. Subsequently her symptoms worsened so she was seen by Pulmonary him she was prescribed another course prednisone for her trip. When she was there the patient developed a swollen leg and was evaluated for blood clot of the left lower extremity. Was negative for any blood clots. I do not have the report though this is all per patient report. The patient is subsequently [place] She has had worsening cough shortness of breath. Denies any pleuritic chest pain. She has been fatigued. Her leg is less swollen which is reassuring. She was then evaluated again by Pulmonary and she was placed on doxycycline and completed a course of prednisone again. And now she is no better. She still coughing is productive in nature yellowish in color difficult to expectorate. She has been using Mucinex. She does have significant rhonchi and crackles in the right base suggesting bronchopneumonia. She did have a chest x-ray which I personally reviewed consistent with the findings on the exam. Her white counts elevated. Her D-dimer is also significantly elevated at 492. 01/12/2024 the patient is here for a pulmonary follow-up visit. Overall she is feeling a little better. She did finish Levaquin. She did have a CTA that we personally reviewed. The patient did have some areas of mucus plugging and some small pulmonary nodules. But otherwise lungs were fairly clear. No evidence of any thromboembolic disease. Her lower extremities continue to be swollen. She knows to be careful with sodium intake. The patient will work on that as well. In the meantime respiratory hein she is doing okay. Although she started developing a productive cough with yellow phlegm again. She is going to monitor closely the symptoms. I think it be reasonable to treat her for chronic bronchitis at this time. The different options include Daliresp that she can take regularly and or azithromycin that she can take for course of 4-8 weeks. But in the meantime she is going to start using her Acapella valve in using Mucinex as needed for chest congestion. If she does develop further chest congestion she should bring the sputum culture that was provided to her to the laboratory so we can analyze make sure there is no underlying smoldering process. In addition to that I did speak to her that if she continues to have symptoms we can also consider bronchoscopy for airway clearance. But overall she feels a little better. She is going to push out her PFTs February until she recovers a little bit more and then will follow-up after that PFT. If she has any issues prior to that she will call for an earlier assessment. [facility] Medical History (Updated 12/21/23 @ 09:51 by Joel Cain MD) Mild mitral valve prolapse Asthma exacerbation attacks Chronic allergic rhinitis Bronchitis Asthma Social History Patient Tobacco Use Status: Never used Tobacco Review of Systems Const Reports fatigue and Denies night sweats ENT Denies change in voice, Denies lip swelling, Denies mouth pain, Reports nasal congestion, Reports nasal discharge and Denies tongue swelling Card Denies chest pain Resp Reports chest congestion, Reports cough, Denies hemoptysis, Denies pain on inspiration, Denies pain with cough and Reports wheezing GI Denies abdominal pain and Reports heartburn Musc Denies no additional complaints Skin/Breast Denies rash Neuro Denies Neuro-related abnormal movements Psych Denies no additional complaints Endo Reports fatigue Derek/Lymph Denies easy bleeding and Denies lymphadenopathy Aller/Immun Denies lip swelling, Denies tongue swelling and Reports wheezing Physical Exam Vital Signs: Last Vital Signs Pulse 74 01/12/24 13:55 BP 126/72 01/12/24 13:55 Pulse Ox 96 01/12/24 13:55 Oxygen Delivery Method Room Air 01/12/24 13:55 BMI result Body Mass Index 29.5 Const General: alert Neck Neck: Yes normal visual inspection, Yes full ROM and Yes no lymphadenopathy Chest Chest palpation & inspection: normal inspection of the chest Resp Effort & Inspection: normal respiratory effort Auscultation: no crackles, no rhonchi, no wheezes and diminished lung sounds Cardio Rate: regular rate Rhythm: regular rhythm Heart sounds: S1 normal heart sound present and S2 normal heart sound present GI Palpation (GI): Soft to palpation and nontender Auscultation: normal bowel sounds Skin General skin exam: no rashes or lesions noted Extrem General: Yes no clubbing, cyanosis or edema Assessment & Plan Assessment & Plan (1) Asthma: Code(s): J45.909 - Unspecified asthma, uncomplicated Category: Medical Qualifiers: Asthma complication type: with acute exacerbation Asthma persistence: persistent Asthma severity: moderate Qualified Code(s): J45.41 - Moderate persistent asthma with (acute) exacerbation (2) Chronic allergic rhinitis: Code(s): J30.9 - Allergic rhinitis, unspecified Category: Medical (3) GERD (gastroesophageal reflux disease): Code(s): K21.9 - Gastro-esophageal reflux disease without esophagitis Category: Medical Qualifiers: Esophagitis presence: without esophagitis Qualified Code(s): K21.9 - Gastro-esophageal reflux disease without esophagitis Plan Continue Symbicort in AM then as needed Nebulizer daily CPT with acapella valve Continue Mucinex Sputum cx consider Daliresp or Azithromycin if culture negative consider bronchoscopy PFTs february F/U 2 months Coding Level of Care Code Est Pt Level 4 (14563) Diagnoses Moderate persistent asthma with acute exacerbation J45.41 Asthma complication type: with acute exacerbation Asthma persistence: persistent Asthma severity: moderate Chronic allergic rhinitis J30.9 Gastroesophageal reflux disease without esophagitis K21.9 Esophagitis presence: without esophagitis Time Spent (min) 17
[2024-01-12 13:55] VITALS: BP 126/72; PULSE 74; O2SAT 96; BMI 29.5
== END 2024-01-12 14:37 | disposition home or self-care (01) ==
PROVIDERS: PCP Internal Medicine; Visit Provider Hospitalist
DX: J45.41 Moderate persistent asthma with (acute) exacerbation (principal); J30.9 Allergic rhinitis, unspecified; K21.9 Gastro-esophageal reflux disease without esophagitis
CPT/HCPCS: 99214

== ENCOUNTER → 2024-01-12 13:47 | Outpatient (BNVA) | payer MEDICARE, MEDICAID, SELFPAY | PROVIDERS: PCP Internal Medicine; Visit Provider Hospitalist | DX: J45.41 Moderate persistent asthma with (acute) exacerbation (principal); J30.9 Allergic rhinitis, unspecified; K21.9 Gastro-esophageal reflux disease without esophagitis | CPT/HCPCS: 99212 ==

== ENCOUNTER 2024-03-08 09:02 | Outpatient (AMB) | payer MEDICARE, MEDICAID, SELFPAY ==
[2024-03-08 09:06] VITALS: BP 120/70; PULSE 62; O2SAT 97; BMI 30.1
--- NOTE | 2024-03-08 09:06 | A.OFFVIS_ITS ---
Vital Signs 03/08/24 09:06 Height 4 ft 11 in Weight 148 lb 12.992 oz BMI 30.1 BP 120/70 Blood Pressure Location Lt brachial Position Sitting Pulse 62 Pulse Source Pulse Oximeter Pulse Oximetry (%) 97 Oxygen Delivery Method Room Air Intake Visit Reasons: Shortness of Breath/PFT Follow Up Epic [facility] Required: No Allergies No Known Allergies Allergy (Verified 03/08/24 09:09) HPI Comments Details: The patient is a 69-year-old woman with a history of asthma in addition to allergic rhinitis. She is currently being treated by the allergy office. She was otherwise doing well until August when she started developing worsening shortness of breath and cough. She restarted the Symbicort with good effect. She is using daily. Has not had to use her rescue inhaler. 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 She is concerned because she did get sick back in November of 2018 requiring antibiotics and prednisone. At this point she is doing well. 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 We will readdress that issues during the early fall attending have the COVID-19 infections are going. Her sleep is better. She is not snoring as much that now that she has been using an addaptive device that she brought. We did talk about her pulmonary nodules and her last CT chest demonstrating stable nodules as per CT chest 2017. 08/28/2020 the patient is here for pulmonary follow-up visit. Since we last spoke the patient has been complaining of worsening cough along with shortness of breath. She feels some chest tightness. Mild in severity she had been doing okay specially with doing her allergy shots. She actually stop the Symbicort because use doing well. She did not require her short-acting beta agonist for some time. However, due to the pandemic she had this done the allergy shots in her respiratory status has been worsening. Been having a productive cough. She has been using her rescue therapy a nebulizer more frequently. Typically on a daily basis. She has required courses of prednisone. At this point the patient is planning a trip to [place] to see her new grandchild. She will be getting the Tdap vaccine this week. On examination she does have some expiratory wheezing. Explained to the patient that based on the fact that she is going to get a vaccine will going to give any prednisone. But, she needs to restart her Symbicort and also start using her nebulizer twice a day. In the meantime will treated for bronchitis with azithromycin. She will finish a 5 day course. She will follow-up with Allergy immunology regarding other alternatives to the allergy shots if she does not find effective. 11/26/2020 the patient is here for sick visit. She started developing worsening cough the last week. Positive sick contacts with a has been sick at home. She then started developing increasing cough chest congestion. She did call our office and we did provide her with a Z-Ted and she did start Mucinex DM. However, after several days she was no better. Therefore she will call to make an appointment. On today's visit she started to feel little better. Although she is expectorating more in the phlegm tends to be thick in discolored greenish color. She also feels tired. At some point in the beginning she did develop some chest discomfort which a component was pleuritic period of the right now on the examination her lungs sound relatively clear the bases without any evidence of any pleural rubs or consolidations. The patient has been using the nebulizer therapy twice a day. However, she is complaining about the tremulousness that she is getting from it. In addition to that she has developed some chest discomfort specially well coughing. [id number] severity. At this point she does not feel it. 11/22/2021 the patient is here for pulmonary follow-up visit. She continues to do fairly well. She has not required prednisone or antibiotics in the last year. She has continue with her allergy shots although there was a decrease in the amount recently. The patient still not sure when to use her inhalers. Has Symbicort available. I did recommend she can use use it as needed. we did review data demonstrating that Symbicort has been shown to be effective while using it as needed instead of short-acting beta agonists by itself. She can be monitored closely by symptoms and also peak flows to measure the airway resistance. I did provide her 1 in the office and we did instructed how to use it. Her peak flow was around 400 mL/sec. The patient also has a nebulizer available. She has not required. She was also found to have osteoporosis and will be starting Prolia soon. The patient does continue to have reflux symptoms. She stop the PPI due to her issue with osteoporosis. Patient is able to use Pepcid to minimize her reflux symptoms and to be using conjunction with the reflux diet. It may also help with her allergies. 04/15/2022 the patient is here for a pulmonary follow-up visit. The patient just came back from [place]. Once she got to [place] she became sick with worsening respiratory symptoms. She went to an urgent care where she was evaluated and found to have significant wheezing. She was given Solu-Medrol intramuscularly 2 days in a row. In addition to that she was started on levofloxacin also given cough medication. Her symptoms persisted while in [place]. She is feeling better although she is not back to baseline. She still coughing. At times is a croupy cough and at times is productive of yellowish green phlegm. She did complete the levofloxacin. She also completed the prednisone. She has been using the nebulizer but it makes her little shaky. She does have a flutter valve which she has not used it because she does not use it. Due to the fact that she has been under the weather she did not have her pulmonary function studies. We did review the use of the flutter valve and she may continue using it specially after the nebulized therapy. She knows that she can do half a treat him to minimize the adverse effects from the medication. In view of the persistent chest congestion I do believe that this is likely a postviral bacterial infection. Will go ahead and start her again on doxycycline in order to completely clear all the potential pathogens including community-acquired Staph. She continues using respiratory therapy. Also to note that when she came back she did have a chest x-ray done and she was told that it was normal. I do not have those results however. 09/10/2023 the patient is here for pulmonary follow-up visit. The patient is feeling well. Denies any recent exacerbations. She does have the Symbicort inhaler although she does not using all the time. She does complaint of chest congestion at times. The mucus usually clears up after she is able to expectorate it. She has been sick since last time she was here where she required antibiotics for that infection she developed a broad while she was in [place] visiting her daughter. She still has some prolonged expiratory phase on examination. I do believe that she needs to continue the Symbicort. Although she is concerned about her osteoporosis. Will go ahead and just have her take the smallest dose possible which 1 puff daily. Although she still can use it as needed as well. The patient should come back in 6 months with PFTs to assess her respiratory capacity. She does have another trip plan abroad to [place] in the coming weeks. I will make sure that a provider medications for her to take with her especially since she got sick during the last trip. 12/21/2023 the patient is here for sick visit. She has had a very eventful few months. When he last saw her the patient was ready to go on a trip to [place]. Then she became sick she saw Allergy and she was given a course of steroids because she was having significant coughing wheezing chest tightness. Subsequently her symptoms worsened so she was seen by Pulmonary him she was prescribed another course prednisone for her trip. When she was there the patient developed a swollen leg and was evaluated for blood clot of the left lower extremity. Was negative for any blood clots. I do not have the report though this is all per patient report. The patient is subsequently [place] She has had worsening cough shortness of breath. Denies any pleuritic chest pain. She has been fatigued. Her leg is less swollen which is reassuring. She was then evaluated again by Pulmonary and she was placed on doxycycline and completed a course of prednisone again. And now she is no better. She still coughing is productive in nature yellowish in color difficult to expectorate. She has been using Mucinex. She does have significant rhonchi and crackles in the right base suggesting bronchopneumonia. She did have a chest x-ray which I personally reviewed consistent with the findings on the exam. Her white counts elevated. Her D-dimer is also significantly elevated at 492. 01/12/2024 the patient is here for a pulmonary follow-up visit. Overall she is fe eling a little better. She did finish Levaquin. She did have a CTA that we personally reviewed. The patient did have some areas of mucus plugging and some small pulmonary nodules. But otherwise lungs were fairly clear. No evidence of any thromboembolic disease. Her lower extremities continue to be swollen. She knows to be careful with sodium intake. The patient will work on that as well. In the meantime respiratory hein she is doing okay. Although she started developing a productive cough with yellow phlegm again. She is going to monitor closely the symptoms. I think it be reasonable to treat her for chronic bronchitis at this time. The different options include Daliresp that she can take regularly and or azithromycin that she can take for course of 4-8 weeks. But in the meantime she is going to start using her Acapella valve in using Mucinex as needed for chest congestion. If she does develop further chest congestion she should bring the sputum culture that was provided to her to the laboratory so we can analyze make sure there is no underlying smoldering process. In addition to that I did speak to her that if she continues to have symptoms we can also consider bronchoscopy for airway clearance. But overall she feels a little better. She is going to push out her PFTs February until she recovers a little bit more and then will follow-up after that PFT. If she has any issues prior to that she will call for an earlier assessment. 03/08/2024 the patient is here for a pulmonary follow-up visit. Overall the patient is feeling better. She continues on Symbicort. 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 Overall she is feeling okay. She does have a cough nonproductive in nature intermittent. The patient has more trouble triggers including allergies and also viral illnesses. She did have pulmonary function studies at [facility] recently we did review them. She appears to have a mild obstruction. She does have a significant response to bronchodilators. Therefore explained to her that the use of Symbicort will be helpful for her to do regularly. She can try to minimize dose to just 1 inhalation daily and then she can use it as needed. But I do believe that using it regularly will be helpful for her based on her response to the bronchodilation and decrease the inflammation of the airways. She is going to consider using elderberry to minimize on infections and she can continue with the herbal therapy like she is currently doing. The patient will monitor closely for any worsening symptoms she will call if she has any worsening issues otherwise will follow-up sometime in 6 months. [facility] Medical History (Updated 12/21/23 @ 09:51 by Joel Cain MD) Mild mitral valve prolapse Asthma exacerbation attacks Chronic allergic rhinitis Bronchitis Asthma Social History Patient Tobacco Use Status: Never used Tobacco Review of Systems Const Reports fatigue and Denies night sweats ENT Denies change in voice, Denies lip swelling, Denies mouth pain, Reports nasal congestion, Reports nasal discharge and Denies tongue swelling Card Denies chest pain Resp Denies chest congestion, Reports cough, Denies hemoptysis, Denies pain on inspiration, Denies pain with cough and Denies wheezing GI Denies abdominal pain and Reports heartburn Musc Denies no additional complaints Skin/Breast Denies rash Neuro Denies Neuro-related abnormal movements Psych Denies no additional complaints Endo Reports fatigue Derek/Lymph Denies easy bleeding and Denies lymphadenopathy Aller/Immun Denies lip swelling, Denies tongue swelling and Denies wheezing Physical Exam Vital Signs: Last Vital Signs Pulse 62 03/08/24 09:06 BP 120/70 03/08/24 09:06 Pulse Ox 97 03/08/24 09:06 Oxygen Delivery Method Room Air 03/08/24 09:06 BMI result Body Mass Index 30.1 Const General: alert Neck Neck: Yes normal visual inspection, Yes full ROM and Yes no lymphadenopathy Chest Chest palpation & inspection: normal inspection of the chest Resp Effort & Inspection: normal respiratory effort and prolonged expiratory phase Auscultation: no crackles, no rhonchi, no wheezes and diminished lung sounds Cardio Rate: regular rate Rhythm: regular rhythm Heart sounds: S1 normal heart sound present and S2 normal heart sound present GI Palpation (GI): Soft to palpation and nontender Auscultation: normal bowel sounds Skin General skin exam: no rashes or lesions noted Extrem General: Yes no clubbing, cyanosis or edema Assessment & Plan Assessment & Plan (1) Asthma: Code(s): J45.909 - Unspecified asthma, uncomplicated Category: Medical Qualifiers: Asthma complication type: with acute exacerbation Asthma persistence: persistent Asthma severity: moderate Qualified Code(s): J45.41 - Moderate persistent asthma with (acute) exacerbation (2) Chronic allergic rhinitis: Code(s): J30.9 - Allergic rhinitis, unspecified Category: Medical (3) GERD (gastroesophageal reflux disease): Code(s): K21.9 - Gastro-esophageal reflux disease without esophagitis Category: Medical Qualifiers: Esophagitis presence: without esophagitis Qualified Code(s): K21.9 - Gastro-esophageal reflux disease without esophagitis Plan Continue Symbicort in AM then as needed Nebulizer as needed CPT with acapella valve consider Daliresp or Azithromycin if culture negative F/U 4-6 months Coding Level of Care Code Est Pt Level 4 (72529) Diagnoses Moderate persistent asthma with acute exacerbation J45.41 Asthma complication type: with acute exacerbation Asthma persistence: persistent Asthma severity: moderate Chronic allergic rhinitis J30.9 Gastroesophageal reflux disease without esophagitis K21.9 Esophagitis presence: without esophagitis Time Spent (min) 17
== END 2024-03-08 09:33 | disposition home or self-care (01) ==
PROVIDERS: PCP Internal Medicine; Visit Provider Hospitalist
DX: J45.41 Moderate persistent asthma with (acute) exacerbation (principal); J30.9 Allergic rhinitis, unspecified; K21.9 Gastro-esophageal reflux disease without esophagitis
CPT/HCPCS: 99214

== ENCOUNTER → 2024-03-08 09:02 | Outpatient (BNVA) | payer MEDICARE, MEDICAID, SELFPAY | PROVIDERS: PCP Internal Medicine; Visit Provider Hospitalist | DX: J45.41 Moderate persistent asthma with (acute) exacerbation (principal); J30.9 Allergic rhinitis, unspecified; Z79.899 Other long term (current) drug therapy | CPT/HCPCS: 99212 ==

== ENCOUNTER 2024-10-17 15:49 | Outpatient (AMB) | payer MEDICARE, MEDICAID, SELFPAY ==
[2024-10-17 15:52] VITALS: BP 110/56; PULSE 73; O2SAT 97; BMI 31.6
--- NOTE | 2024-10-17 15:52 | A.OFFVIS_ITS ---
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 She is currently being treated by the allergy office. She was otherwise doing well until August when she started developing worsening shortness of breath and cough. She restarted the Symbicort with good effect. She is using daily. Has not had to use her rescue inhaler. 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 She is concerned because she did get sick back in November of 2018 requiring antibiotics and prednisone. At this point she is doing well. 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 We will readdress that issues during the early fall attending have the COVID-19 infections are going. Her sleep is better. She is not snoring as much that now that she has been using an addaptive device that she brought. We did talk about her pulmonary nodules and her last CT chest demonstrating stable nodules as per CT chest 2017. 08/28/2020 the patient is here for pulmonary follow-up visit. Since we last spoke the patient has been complaining of worsening cough along with shortness of breath. She feels some chest tightness. Mild in severity she had been doing okay specially with doing her allergy shots. She actually stop the Symbicort because use doing well. She did not require her short-acting beta agonist for some time. However, due to the pandemic she had this done the allergy shots in her respiratory status has been worsening. Been having a productive cough. She has been using her rescue therapy a nebulizer more frequently. Typically on a daily basis. She has required courses of prednisone. At this point the patient is planning a trip to [place] to see her new grandchild. She will be getting the Tdap vaccine this week. On examination she does have some expiratory wheezing. Explained to the patient that based on the fact that she is going to get a vaccine will going to give any prednisone. But, she needs to restart her Symbicort and also start using her nebulizer twice a day. In the meantime will treated for bronchitis with azithromycin. She will finish a 5 day course. She will follow-up with Allergy immunology regarding other alternatives to the allergy shots if she does not find effective. 11/26/2020 the patient is here for sick visit. She started developing worsening cough the last week. Positive sick contacts with a has been sick at home. She then started developing increasing cough chest congestion. She did call our office and we did provide her with a Z-Ted and she did start Mucinex DM. However, after several days she was no better. Therefore she will call to make an appointment. On today's visit she started to feel little better. Although she is expectorating more in the phlegm tends to be thick in discolored greenish color. She also feels tired. At some point in the beginning she did develop some chest discomfort which a component was pleuritic period of the right now on the examination her lungs sound relatively clear the bases without any evidence of any pleural rubs or consolidations. The patient has been using the nebulizer therapy twice a day. However, she is complaining about the tremulousness that she is getting from it. In addition to that she has developed some chest discomfort specially well coughing. Wleg-cp-hxuhcqsm severity. At this point she does not feel it. 11/22/2021 the patient is here for pulmonary follow-up visit. She continues to do fairly well. She has not required prednisone or antibiotics in the last year. She has continue with her allergy shots although there was a decrease in the amount recently. The patient still not sure when to use her inhalers. Has Symbicort available. I did recommend she can use use it as needed. we did review data demonstrating that Symbicort has been shown to be effective while using it as needed instead of short-acting beta agonists by itself. She can be monitored closely by symptoms and also peak flows to measure the airway resistance. I did provide her 1 in the office and we did instructed how to use it. Her peak flow was around 400 mL/sec. The patient also has a nebulizer available. She has not required. She was also found to have osteoporosis and will be starting Prolia soon. The patient does continue to have reflux symptoms. She stop the PPI due to her issue with osteoporosis. Patient is able to use Pepcid to minimize her reflux symptoms and to be using conjunction with the reflux diet. It may also help with her allergies. 04/15/2022 the patient is here for a pulmonary follow-up visit. The patient just came back from [place]. Once she got to [place] she became sick with worsening respiratory symptoms. She went to an urgent care where she was evaluated and found to have significant wheezing. She was given Solu-Medrol intramuscularly 2 days in a row. In addition to that she was started on levofloxacin also given cough medication. Her symptoms persisted while in [place]. She is feeling better although she is not back to baseline. She still coughing. At times is a croupy cough and at times is productive of yellowish green phlegm. She did complete the levofloxacin. She also completed the prednisone. She has been using the nebulizer but it makes her little shaky. She does have a flutter valve which she has not used it because she does not use it. Due to the fact that she has been under the weather she did not have her pulmonary function studies. We did review the use of the flutter valve and she may continue using it specially after the nebulized therapy. She knows that she can do half a treat him to minimize the adverse effects from the medication. In view of the persistent chest congestion I do believe that this is likely a postviral bacterial infection. Will go ahead and start her again on doxycycline in order to completely clear all the potential pathogens including community-acquired Staph. She continues using respiratory therapy. Also to note that when she came back she did have a chest x-ray done and she was told that it was normal. I do not have those results however. 09/10/2023 the patient is here for pulmonary follow-up visit. The patient is feeling well. Denies any recent exacerbations. She does have the Symbicort inhaler although she does not using all the time. She does complaint of chest congestion at times. The mucus usually clears up after she is able to expectorate it. She has been sick since last time she was here where she required antibiotics for that infection she developed a broad while she was in [place] visiting her daughter. She still has some prolonged expiratory phase on examination. I do believe that she needs to continue the Symbicort. Although she is concerned about her osteoporosis. Will go ahead and just have her take the smallest dose possible which 1 puff daily. Although she still can use it as needed as well. The patient should come back in 6 months with PFTs to assess her respiratory capacity. She does have another trip plan abroad to [place] in the coming weeks. I will make sure that a provider medications for her to take with her especially since she got sick during the last trip. 12/21/2023 the patient is here for sick visit. She has had a very eventful few months. When he last saw her the patient was ready to go on a trip to [place]. Then she became sick she saw Allergy and she was given a course of steroids because she was having significant coughing wheezing chest tightness. Subsequently her symptoms worsened so she was seen by Pulmonary him she was prescribed another course prednisone for her trip. When she was there the patient developed a swollen leg and was evaluated for blood clot of the left lower extremity. Was negative for any blood clots. I do not have the report though this is all per patient report. The patient is subsequently [place] She has had worsening cough shortness of breath. Denies any pleuritic chest pain. She has been fatigued. Her leg is less swollen which is reassuring. She was then evaluated again by Pulmonary and she was placed on doxycycline and completed a course of prednisone again. And now she is no better. She still coughing is productive in nature yellowish in color difficult to expectorate. She has been using Mucinex. She does have significant rhonchi and crackles in the right base suggesting bronchopneumonia. She did have a chest x-ray which I personally reviewed consistent with the findings on the exam. Her white counts elevated. Her D-dimer is also significantly elevated at 492. 01/12/2024 the patient is here for a pulmonary follow-up visit. Overall she is feeling a little better. She did finish Levaquin. She did have a CTA that we personally reviewed. The patient did have some areas of mucus plugging and some small pulmonary nodules. But otherwise lungs were fairly clear. No evidence of any thromboembolic disease. Her lower extremities continue to be swollen. She knows to be careful with sodium intake. The patient will work on that as well. In the meantime respiratory hein she is doing okay. Although she started developing a productive cough with yellow phlegm again. She is going to monitor closely the symptoms. I think it be reasonable to treat her for chronic bronchitis at this time. The different options include Daliresp that she can take regularly and or azithromycin that she can take for course of 4-8 weeks. But in the meantime she is going to start using her Acapella valve in using Mucinex as needed for chest congestion. If she does develop further chest congestion she should bring the sputum culture that was provided to her to the laboratory so we can analyze make sure there is no underlying smoldering process. In addition to that I did speak to her that if she continues to have symptoms we can also consider bronchoscopy for airway clearance. But overall she feels a little better. She is going to push out her PFTs February until she recovers a little bit more and then will follow-up after that PFT. If she has any issues prior to that she will call for an earlier assessment. 03/08/2024 the patient is here for a pulmonary follow-up visit. Overall the p atient is feeling better. She continues on Symbicort. 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 Overall she is feeling okay. She does have a cough nonproductive in nature intermittent. The patient has more trouble triggers including allergies and also viral illnesses. She did have pulmonary function studies at [facility] recently we did review them. She appears to have a mild obstruction. She does have a significant response to bronchodilators. Therefore explained to her that the use of Symbicort will be helpful for her to do regularly. She can try to minimize dose to just 1 inhalation daily and then she can use it as needed. But I do believe that using it regularly will be helpful for her based on her response to the bronchodilation and decrease the inflammation of the airways. She is going to consider using elderberry to minimize on infections and she can continue with the herbal therapy like she is currently doing. The patient will monitor closely for any worsening symptoms she will call if she has any worsening issues otherwise will follow-up sometime in 6 months. 10/17/2024 the patient is here for pulmonary follow-up visit for overall she is doing well. She does complaint of dyspnea on exertion wzoz-fi-soiozhod specially when going up a flight of stairs. She walks regularly. She has been taking his Symbicort daily. Although she is wondering if she can just use it as needed. Her respiratory exam indeed is reassuring so therefore she can start using as needed at this time. I do believe that seasonally she may benefit from taking it regularly. In addition to that she has to monitor closely for any infectious processes that may activate her asthma. We did review her CT scan of the chest demonstrating no acute disease and no evidence of any parenchymal disease. She does have some mosaic pattern consistent with small airways dis ease. The patient also had PFTs back in 2023 demonstrating a trend response to bronchodilators and a mild obstruction. Overall she is doing well she has been vaccinated up today. She does need to get a Tdap. She will get that soon as possible because she is going to be a grandmother in December. The patient otherwise doing well follow-up in a year's time she has any issues prior to that she will call for an earlier assessment. [facility] Medical History (Updated 10/17/24 @ 23:51 by Joel Cain MD) Mild mitral valve prolapse Asthma exacerbation attacks Chronic allergic rhinitis Bronchitis Asthma Social History Patient Tobacco Use Status: Never used Tobacco Review of Systems Const Denies chills, Denies fatigue, Denies fever(s), Denies weight gain and Denies weight loss ENT Denies dizziness, Denies lip swelling and Denies tongue swelling Card Denies chest pain, Denies leg edema, Denies lightheadedness, Denies palpitations, Reports dyspnea on exertion, Denies orthopnea and Denies other Resp Reports cough, Reports dyspnea on exertion and Denies wheezing GI Denies hematochezia and Denies change in stool character Musc Denies abnormal gait, Denies muscle weakness, Denies numbness, Denies radiating pain into limb and Denies tingling Skin/Breast Denies rash Neuro Denies abnormal gait, Denies dizziness, Denies numbness and Denies tingling Psych Denies no additional complaints Endo Denies fatigue and Denies palpitations Derek/Lymph Denies easy bleeding and Denies lymphadenopathy Aller/Immun Denies lip swelling, Denies tongue swelling and Denies wheezing Physical Exam Vital Signs: Last Vital Signs Pulse 73 10/17/24 15:52 BP 110/56 L 10/17/24 15:52 Pulse Ox 97 10/17/24 15:52 Oxygen Delivery Method Room Air 10/17/24 15:52 BMI result Body Mass Index 31.6 Const General: alert Neck Neck: Yes normal visual inspection, Yes full ROM and Yes no lymphadenopathy Chest Chest palpation & inspection: normal inspection of the chest Resp Effort & Inspection: normal respiratory effort and No prolonged expiratory phase Auscultation: no crackles, no rhonchi, no wheezes and diminished lung sounds Cardio Rate: regular rate Rhythm: regular rhythm Heart sounds: S1 normal heart sound present and S2 normal heart sound present GI Palpation (GI): Soft to palpation and nontender Auscultation: normal bowel sounds Skin General skin exam: no rashes or lesions noted Extrem General: Yes no clubbing, cyanosis or edema Assessment & Plan Assessment & Plan (1) Asthma: Code(s): J45.909 - Unspecified asthma, uncomplicated Category: Medical Qualifiers: Asthma complication type: uncomplicated Asthma persistence: persistent Asthma severity: moderate Qualified Code(s): J45.40 - Moderate persistent asthma, uncomplicated (2) Chronic allergic rhinitis: Code(s): J30.9 - Allergic rhinitis, unspecified Category: Medical (3) GERD (gastroesophageal reflux disease): Code(s): K21.9 - Gastro-esophageal reflux disease without esophagitis Category: Medical Qualifiers: Esophagitis presence: without esophagitis Qualified Code(s): K21.9 - Gastro-esophageal reflux disease without esophagitis Plan Continue Symbicort as needed Nebulizer as needed CPT with acapella valve EKG consider cardiac stress test to address persistent WICK F/U 8-12 months Orders: Orders ECG 12 lead EKG Today J44.9 - Chronic obstructive pulmonary disease, unspecified Coding Level of Care Code Est Pt Level 4 (54481) Complex EM visit Add On G2211 Diagnoses Moderate persistent asthma without complication J45.40 Asthma complication type: uncomplicated Asthma persistence: persistent Asthma severity: moderate Chronic allergic rhinitis J30.9 Gastroesophageal reflux disease without esophagitis K21.9 Esophagitis presence: without esophagitis Time Spent (min) 20
--- OUTSIDE RECORDS SUMMARY | 2024-10-17 15:53 | XMS_ITS | Patient Health Record ---
Author Organization [facility] Address [address] [place] [address] Care Team Providers Care Plastic Top Assembler Name Role Phone [place] Primary Care Provider Unavailabl e Allergies No Known Allergies Reason For Referral No Information Medications Medication SIG (Take, Route, Frequency, Duration) Notes Start Date End Date Status Triamcinolone Acetonide 55 MCG/ACT 2 sprays in each nostril Nasally Once a day Not-Taking Albuterol Sulfate 108 (90 Base) MCG/ACT 1 puff as needed Inhalation every 4 hrs Active Ipratropium-Albuterol 0.5-2.5 (3) MG/3ML 3 mL as needed Inhalation every 6 hrs Active Calcium Carbonate+Vitamin D Active Calcium & Magnesium Carbonates Active Rizatriptan Benzoate 5 MG 1 tablet Orall y Once a day PRN Active Budesonide-Formoterol Fumarate 160-4.5 MCG/ACT 2 puffs Inhalation Twice a day Not-Taking Symbicort Active Citalopram Hydrobromide 10 MG 1 tablet Orally Once a day Not-Taking Omeprazole 20 MG 1 capsule 30 minutes before morning meal Orally Once a day Not-Taking Azelastine HCl 137 MCG/SPRAY 1 puff in each nostril Nasally Twice a day Not-Taking Fluticasone Propionate HFA 110 MCG/ACT 2 puffs Inhalation Twice a day Not-Taking Fluticasone Propionate 50 MCG/ACT 1 spray in each nostril Nasally Once a day Not-Taking Problems Problem Type SNOMED Code ICD Code Onset Dates Problem Status W/U Status Risk Notes Problem [id number] 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) Active confirmed Plan Of Treatment No Information Insurance Providers Payer Name Payer Address Payer Phone Subscriber Number Group Number Insured Name Patient Relationship to Insured Coverage Start Date Coverage End Date [employer] [place] [address] [place] [id number] Yahir Szymanski Self - patient is the insured Medical (General) History Medical History History ICD Code allergic rhinitis anxiety aortic valve sclerosis asthma bronchitis depression esophageal obstruction due to food impac tion GERD (gastroesophageal reflux disease) hiatal hernia mitral valve sclerosis obesity osteopenia osteoporosis schatzki's ring + COVID 06/08/2022 COVID vaccinated X 3 Surgical History Surgery Date(Month/Year) colonoscopy w/ biopsies- hyperplastic po lyp 11/2016 endoscopy- mild esophagitis and gastriti s and small hiatal hernia 11/2016 Juan left ACL- no surgical repair uterine polyp removed
== END 2024-10-17 16:26 | disposition home or self-care (01) ==
LOC: HO.HPS 15:50
PROVIDERS: PCP Internal Medicine; Visit Provider Hospitalist
DX: J45.40 Moderate persistent asthma, uncomplicated (principal); J30.9 Allergic rhinitis, unspecified; K21.9 Gastro-esophageal reflux disease without esophagitis
CPT/HCPCS: 99214; G2211

== ENCOUNTER → 2024-10-17 15:49 | Outpatient (BNVA) | payer MEDICARE, MEDICAID, SELFPAY | PROVIDERS: PCP Internal Medicine; Visit Provider Hospitalist | DX: J44.9 Chronic obstructive pulmonary disease, unspecified (principal); J45.40 Moderate persistent asthma, uncomplicated; J30.9 Allergic rhinitis, unspecified; K21.9 Gastro-esophageal reflux disease without esophagitis | CPT/HCPCS: 99212 ==